=== PATIENT | male | born 1965 | race Caucasian/White ===

== ENCOUNTER 2018-03-14 21:16 | Emergency (ER) | payer BC ==
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
[2018-03-15 01:00] VITALS: BP 148/72
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
== END 2018-03-15 00:25 | disposition home or self-care (01) ==
LOC: ED 21:16
DX: S16.1XXA Strain of muscle, fascia and tendon at neck level, initial encounter (principal); S00.81XA Abrasion of other part of head, initial encounter; Y93.55 Activity, bike riding; Y92.9 Unspecified place or not applicable
CPT/HCPCS: 72125; 99282